=== PATIENT | female | born 1985 | race African-American/Black ===

== ENCOUNTER 2024-12-06 02:22 | Emergency (ER) | payer SELFPAY ==
[~2024-12-06] VITALS: Ht 157.5 cm; Wt 85.3 kg
[~2024-12-06 02:22] MED LIST: NAPROSYN500 MG PO
[2024-12-06 02:30] VITALS: PULSE 89; RESP 18; TEMP 98.6
[2024-12-06] MEDS ORDERED: DOXYCYCLINE HY100 MG PO (03:40)
[2024-12-06] MEDS ORDERED: NAPROSYN500 MG PO (03:40)
[2024-12-06] MEDS: KETOROLAC TROMETHAMINE 60 MG/2 ML VIAL IM ONE (03:52)
[2024-12-06 04:36] VITALS: BP 138/86; O2SAT 98
== END 2024-12-06 04:20 | disposition home or self-care (01) ==
LOC: ER 03:26
DX: R20.2 Paresthesia of skin (principal); L73.2 Hidradenitis suppurativa; I10 Essential (primary) hypertension; F17.210 Nicotine dependence, cigarettes, uncomplicated
CPT/HCPCS: 99283; J1885